=== PATIENT | female | born 1965 | race Caucasian/White ===

== ENCOUNTER 2018-12-15 22:01 | Emergency (ER) | payer SELFPAY ==
[~2018-12-15] VITALS: Ht 160 cm; Wt 90.7 kg
[2018-12-15] MEDS ORDERED: LEVO125T8 PO (22:13)
[2018-12-15] MEDS ORDERED: LITH450T2 PO (22:13)
[2018-12-15] MEDS ORDERED: TRAZ-182 PO (22:13)
[2018-12-15] MEDS ORDERED: CITA20TA19 PO (22:13)
[2018-12-15] MEDS ORDERED: LURA80TA PO (22:13)
[2018-12-15] MEDS ORDERED: LORA0.5T PO (22:13)
[2018-12-15] MEDS ORDERED: LAMO50TA3 PO (22:13)
[2018-12-15] MEDS ORDERED: L.AC1CAP6 PO (22:14)
[2018-12-15] MEDS ORDERED: VITA1TAB17 PO (22:14)
[2018-12-15] MEDS ORDERED: MULT-1201 PO (22:14)
--- NOTE | 2018-12-15 22:19 | NUR ---
Patient ambulated with stable gait. AAOX4. Patient speech is clear, speaks in complete sentences. No neuro deficits. Patient came in for c/o RLE pain that occurs intermittently, and changes in her vision [id number] ago. Patient denies any current pain. When pain occurs, pain radiates up to the thigh at intermittent times. Respiratory even and unlabored, no evidence of cough or shortness of breath. No GI/ distress noted. Patient in bed at lowest position, side rails upx2, call light within reach. Fall precautions implemented per protocol.
--- NOTE | 2018-12-15 22:25 | NUR ---
ERMD at bedside for MSE
--- NOTE | 2018-12-15 22:37 | NUR ---
Patient discharged to home in stable conditon. Written and verbal after care instructions given. Patient verbalizes understanding of instructions. Patient ambulated with stable gait.
[2018-12-15 22:38] VITALS: BP 110/73
== END 2018-12-15 22:39 | disposition home or self-care (01) ==
LOC: ER 22:02
DX: Z00.00 Encounter for general adult medical examination without abnormal findings (principal); K21.9 Gastro-esophageal reflux disease without esophagitis; E03.9 Hypothyroidism, unspecified; Z79.899 Other long term (current) drug therapy
CPT/HCPCS: A4663